=== PATIENT | female | born 1965 | race Caucasian/White ===

== ENCOUNTER 2018-07-26 17:50 | Emergency (ER) | payer SELFPAY ==
[~2018-07-26] VITALS: Ht 162.6 cm; Wt 79.2 kg
[2018-07-26 17:58] VITALS: BP 105/57; PULSE 95; RESP 20; Ht 162.6 cm; Wt 79.2 kg
== END 2018-07-26 18:39 | disposition left against medical advice (07) ==
LOC: E/R 17:50
DX: Z53.21 Procedure and treatment not carried out due to patient leaving prior to being seen by health care provider (principal)